=== PATIENT | female | born 1940 | race Caucasian/White ===

== ENCOUNTER → 2016-10-24 | Outpatient (CLI) | payer MEDICARE, BC | LOC: MW.CHFP 08:00 | PROVIDERS: ATTEND Family Medicine | DX: H10.30 Unspecified acute conjunctivitis, unspecified eye (principal); J01.00 Acute maxillary sinusitis, unspecified | CPT/HCPCS: G0463 ==

== ENCOUNTER 2018-09-29 11:46 | Emergency (ER) | payer MEDICARE, BC ==
[2018-09-29] MEDS ORDERED: Sodium Chloride 0.9% 10 ML Syringe FLUSH PRN (12:03)
[2018-09-29] MEDS ORDERED: Sodium Chloride 0.9% 2.5 ML Syringe FLUSH PRN (12:03)
--- NOTE | 2018-09-29 12:04 | EDM.PDOC ---
ED HPI GENERAL MEDICAL PROBLEM - General Chief Complaint: General Stated Complaint: SPOKE TO NURSE Time Seen by Provider: 09/29/18 12:03 Source of Information: Reports: Patient History Limitations: Reports: No Limitations - History of Present Illness INITIAL COMMENTS - FREE TEXT/NARRATIVE: HISTORY AND PHYSICAL: History of present illness: Patient is a 78-year-old female here with complaint of dizziness. She states it began 3 weeks ago and she has had 3 episodes of it. She reports she was on antibiotics a few weeks ago for a sinus infection. She had some dizziness at that time but it only lasted about 30 minutes. She states 2 weeks ago she had a tooth pulled and was put on ampicillin. She again had 30 minutes of dizziness that resolved on it's on. She reports today she has been having dizziness since 7:30 this morning. She reports if she sits still she is not dizzy but when she moves her head or changes position she feels like the room is spinning. She gets nauseous when this occurs but denies any vomiting. She denies head injury or fall. Denies fevers, chills, headache, cough, chest pain, SOB, abdominal pain , urinary or bowel symptoms, tinnitus or hearing loss. Past medical history significant for type 2 diabetes and hypertension. Review of systems: As per history of present illness and below otherwise all systems reviewed and negative. Past medical history: As per history of present illness and as reviewed below otherwise noncontributory. Surgical history: As per history of present illness and as reviewed below otherwise noncontributory. Social history: No reported history of drug or alcohol abuse. Family history: As per history of present illness and as reviewed below otherwise noncontributory. Physical exam: General: Patient sitting comfortably in no acute distress and nontoxic appearing HEENT: No sinus tenderness to palpation. Atraumatic, normocephalic, pupils reactive, negative for conjunctival pallor or scleral icterus, mucous membranes moist, throat clear, neck supple, nontender, trachea midline. No meningeal signs. Lungs: Clear to auscultation, breath sounds equal bilaterally, chest nontender. Heart: S1S2, regular, negative for clicks, rubs, or overt murmur. Abdomen: Soft, nondistended, nontender. Negative for masses or hepatosplenomegaly. Negative for costovertebral tenderness. No rigidity, rebound , guarding. Pelvis: Stable nontender. Genitourinary: Deferred. Rectal: Deferred. Extremities: Atraumatic, negative for cords or calf pain. Neurovascular unremarkable. Neuro: Awake, alert, oriented. Cranial nerves II through XII unremarkable. Cerebellum unremarkable. Motor and sensory unremarkable throughout. Exam nonfocal. Notes: Diagnostics: CBC, CMP, troponin, EKG, UA, Head CT, chest x-ray Therapeutics: 1L Normal Saline IV 25mg Meclizine PO Prescriptions: Meclizine Impression: Vertigo Plan: 1. Drink plenty of fluids and take medication as needed as instructed 2. Follow up with primary care provider 3. Return to ED as needed as discussed Definitive disposition and diagnosis as appropriate pending reevaluation and review of above. - Related Data Allergies Allergy/AdvReac Type Severity Reaction Status Date / Time No Known Allergies Allergy Verified 11/11/13 08:23 Home Meds: Home Meds Allopurinol 300 mg PO DAILY 04/23/15 [History] Cholecalciferol (Vitamin D3) [Vitamin D3] 1,000 unit PO DAILY 04/23/15 [History] Enalapril Maleate 20 mg PO BID 04/23/15 [History] Insulin Detemir [Levemir Flextouch] 26 unit SQ BEDTIME 04/23/15 [History] Insulin Detemir [Levemir Flextouch] 34 unit SQ ACBREAKFAST 04/23/15 [History] Latanoprost [Xalatan 0.005% Ophth Soln] 1 drop EYEBOTH BEDTIME 04/23/15 [History ] Multivit-Min/FA/Lycopene/Lut [Centrum Silver Tablet] 1 tab PO DAILY 04/23/15 [ History] atorvaSTATin [Lipitor] 20 mg PO DAILY 04/23/15 [History] hydroCHLOROthiazide [Hydrochlorothiazide] 25 mg PO DAILY PRN 04/23/15 [History] metFORMIN HCl [Glucophage] 1,000 mg PO BIDMEALS 04/26/15 [History] Aspirin [[place] Aspirin EC] 81 mg PO DAILY 09/06/15 [History] Biotin 5,000 mcg PO DAILY 09/06/15 [History] Meloxicam 15 mg PO DAILY 09/06/15 [History] Acetaminophen/HYDROcodone [[place] 325-5 MG] 1 - 2 tab PO Q6H PRN #80 tablet 09/09 [Rx] Meclizine HCl 25 mg PO TID #30 tablet 09/29/18 [Rx] Past Medical History HEENT History: Reports: Glaucoma Other HEENT History: wears glasses Cardiovascular History: Reports: High Cholesterol, Hypertension Other Cardiovascular History: Abnormality on EKG, sent for Non-gaited Stress test 04/22/15 Erin, Report included in PRE-OP packet, ok EF 60-65%. tricuspid and pulmonic valve regurgitation Respiratory History: Reports: None Other Gastrointestinal History: Occasional heartburn treat with Pepcid Genitourinary History: Reports: None Other Musculoskeletal History: History of breaking both ankles, hx: Lumbar back fusion, Arthritis back/Hips, hx: GOUT. Spinal Stenosis, lumbar, Right Lumbosacral radiculopathy, Lumbar DDD, Lumbar Postlaminectomy Syndrome Neurological History: Reports: None Psychiatric History: Reports: None Endocrine/Metabolic History: Reports: Diabetes, Type II, Obesity/BMI 30+ Hematologic History: Reports: None Immunologic History: Reports: None Other Oncologic History: Fibrocystic Breast Changes, Mass Right Breast on Mammogram Dermatologic History: Reports: None - Past Surgical History Female Surgical History: Reports: Breast Biopsy, D&C Other Neurological Surgeries/Procedures: Fusion Lumbar region 09/2013 Musculoskeletal Surgical History: Reports: Shoulder Surgery ED ROS GENERAL - Review of Systems Review Of Systems: ROS reveals no pertinent complaints other than HPI. ED EXAM, GENERAL - Physical Exam Exam: See Below (see dictation) Course - Vital Signs Last Recorded V/S: Last Vital Signs Temp 97.5 F 09/29/18 12:09 Pulse 76 09/29/18 13:26 Resp 18 09/29/18 13:26 BP 135/82 09/29/18 13:26 Pulse Ox 94 L 09/29/18 13:26 - Orders/Labs/Meds Orders: Active Orders 24 hr Category Date Time Status Cardiac Monitoring [RC] . DIRECTED Care 09/29/18 12:03 Active EKG Documentation Completion [RC] STAT Care 09/29/18 12:03 Active Orthostatic Vital Signs [RC] ASDIRECTED Care 09/29/18 14:10 Active Sodium Chloride 0.9% [Saline Flush] Med 09/29/18 12:03 Active 10 ml FLUSH ASDIRECTED PRN Sodium Chloride 0.9% [Saline Flush] Med 09/29/18 12:03 Active 2.5 ml FLUSH ASDIRECTED PRN Saline Lock Insert [OM.PC] Stat Oth 09/29/18 12:03 Ordered Medication Orders Sodium Chloride (Saline Flush) 10 ml FLUSH ASDIRECTED PRN PRN Reason: Keep Vein Open Last Admin: 09/29/18 13:25 Dose: 10 ml Sodium Chloride (Saline Flush) 2.5 ml FLUSH ASDIRECTED PRN PRN Reason: Keep Vein Open Last Admin: 09/29/18 13:25 Dose: 2.5 ml Labs: Laboratory Tests 09/29/18 09/29/18 09/29/18 Range/Units 12:22 13:13 13:13 WBC Cancelled 7.85 RBC Cancelled 4.43 Hgb Cancelled 12.8 Hct Cancelled 38.6 MCV Cancelled 87.1 MCH Cancelled 28.9 MCHC Cancelled 33.2 RDW Std Deviation Cancelled 46.2 RDW Coeff of Katey Cancelled 15 Plt Count Cancelled 211 MPV Cancelled 11.10 Neut % (Auto) Cancelled 70.5 Lymph % (Auto) Cancelled 21.8 Hall % (Auto) Cancelled 6.9 Eos % (Auto) Cancelled 0.5 Baso % (Auto) Cancelled 0.3 Neut # (Auto) Cancelled 5.5 Lymph # (Auto) Cancelled 1.7 Hall # (Auto) Cancelled 0.5 Eos # (Auto) Cancelled 0.0 Baso # (Auto) Cancelled 0.0 Add Manual Diff Cancelled Nucleated RBC % Cancelled 0.0 Nucleated RBCs # Cancelled 0 Sodium 142 (136-145) mmol/L Potassium 3.6 (3.5-5.1) mmol/L Chloride 104 (98-107) mmol/L Carbon Dioxide 27.2 (21.0-32.0) mmol/L BUN 20 H (7.0-18.0) mg/dL Creatinine 0.8 (0.6-1.0) mg/dL Est Cr Clr Drug Dosing 45.84 mL/min Estimated GFR (MDRD) > 60.0 ml/min Glucose 141 H (74-106) mg/dL Calcium 10.0 (8.5-10.1) mg/dL Total Bilirubin 0.6 (0.2-1.0) mg/dL AST 21 (15-37) IU/L ALT 35 (14-63) IU/L Alkaline Phosphatase 61 (46-116) U/L Troponin I < 0.050 (0.000-0.056) ng/mL Total Protein 7.2 (6.4-8.2) g/dL Albumin 3.8 (3.4-5.0) g/dL Globulin 3.4 (2.6-4.0) g/dL Albumin/Globulin Ratio 1.1 (0.9-1.6) Urine Color Urine Appearance Urine pH (5.0-8.0) Ur Specific [place] (1.001-1.035) Urine Protein (NEGATIVE) mg/dL Urine Glucose (UA) (NEGATIVE) mg/dL Urine Ketones (NEGATIVE) mg/dL Urine Occult Blood (NEGATIVE) Urine Nitrite (NEGATIVE) Urine Bilirubin (NEGATIVE) Urine Urobilinogen (<2.0) EU/dL Ur Leukocyte Esterase (NEGATIVE) 09/29/18 Range/Units 14:05 WBC RBC Hgb Hct MCV MCH MCHC RDW Std Deviation RDW Coeff of Katey Plt Count MPV Neut % (Auto) Lymph % (Auto) Hall % (Auto) Eos % (Auto) Baso % (Auto) Neut # (Auto) Lymph # (Auto) Hall # (Auto) Eos # (Auto) Baso # (Auto) Add Manual Diff Nucleated RBC % Nucleated RBCs # Sodium (136-145) mmol/L Potassium (3.5-5.1) mmol/L Chloride (98-107) mmol/L Carbon Dioxide (21.0-32.0) mmol/L BUN (7.0-18.0) mg/dL Creatinine (0.6-1.0) mg/dL Est Cr Clr Drug Dosing mL/min Estimated GFR (MDRD) ml/min Glucose (74-106) mg/dL Calcium (8.5-10.1) mg/dL Total Bilirubin (0.2-1.0) mg/dL AST (15-37) IU/L ALT (14-63) IU/L Alkaline Phosphatase (46-116) U/L Troponin I (0.000-0.056) ng/mL Total Protein (6.4-8.2) g/dL Albumin (3.4-5.0) g/dL Globulin (2.6-4.0) g/dL Albumin/Globulin Ratio (0.9-1.6) Urine Color YELLOW Urine Appearance CLEAR Urine pH 6.0 (5.0-8.0) Ur Specific [place] 1.015 (1.001-1.035) Urine Protein NEGATIVE (NEGATIVE) mg/dL Urine Glucose (UA) NEGATIVE (NEGATIVE) mg/dL Urine Ketones NEGATIVE (NEGATIVE) mg/dL Urine Occult Blood NEGATIVE (NEGATIVE) Urine Nitrite NEGATIVE (NEGATIVE) Urine Bilirubin NEGATIVE (NEGATIVE) Urine Urobilinogen 0.2 (<2.0) EU/dL Ur Leukocyte Esterase NEGATIVE (NEGATIVE) Meds: Medications Generic Name Dose Route Start Last Admin Trade Name Freq PRN Reason Stop Dose Admin Sodium Chloride 10 ml 09/29/18 12:03 09/29/18 13:25 Saline Flush FLUSH 10 ml ASDIRECTED PRN Administration Keep Vein Open Sodium Chloride 2.5 ml 09/29/18 12:03 09/29/18 13:25 Saline Flush FLUSH 2.5 ml ASDIRECTED PRN Administration Keep Vein Open Discontinued Medications Generic Name Dose Route Start Last Admin Trade Name Freq PRN Reason Stop Dose Admin Sodium Chloride 1,000 mls @ 999 mls/hr 09/29/18 13:19 09/29/18 13:24 Normal Saline IV 09/29/18 14:19 999 mls/hr STAT ONE Administration Meclizine HCl 25 mg 09/29/18 14:08 09/29/18 14:46 Antivert PO 09/29/18 14:09 25 mg ONETIME ONE Administration Departure - Departure Time of Disposition: 14:58 Disposition: Home, Self-Care 01 Condition: Good Clinical Impression: Vertigo - Discharge Information Prescriptions: Meclizine HCl 25 mg PO TID #30 tablet Referrals: PCP,Unknown [Primary Care Provider] - Forms: ED Department Discharge Additional Instructions: The following information is given to patients seen in the emergency department who are being discharged to home. This information is to outline your options for follow-up care. We provide all patients seen in our emergency department with a follow-up referral. The need for follow-up, as well as the timing and circumstances, are variable depending upon the specifics of your emergency department visit. If you don't have a primary care physician on staff, we will provide you with a referral. We always advise you to contact your personal physician following an emergency department visit to inform them of the circumstance of the visit and for follow-up with them and/or the need for any referrals to a consulting specialist. The emergency department will also refer you to a specialist when appropriate. This referral assures that you have the opportunity for follow-up care with a specialist. All of these measure are taken in an effort to provide you with optimal care, which includes your follow-up. Under all circumstances we always encourage you to contact your private physician who remains a resource for coordinating your care. When calling for follow-up care, please make the office aware that this follow-up is from your recent emergency room visit. If for any reason you are refused follow-up, please contact the [facility] at and asked to speak to the emergency department charge nurse. [facility] [address] [place] [id number] 1. Drink plenty of fluids and take medication as needed as instructed 2. Follow up with primary care provider 3. Return to ED as needed as discussed - My Orders Last 24 Hours: My Active Orders 09/29/18 12:03 Cardiac Monitoring [RC] . DIRECTED EKG Documentation Completion [RC] STAT Sodium Chloride 0.9% [Saline Flush] 10 ml FLUSH ASDIRECTED PRN Sodium Chloride 0.9% [Saline Flush] 2.5 ml FLUSH ASDIRECTED PRN Saline Lock Insert [OM.PC] Stat 09/29/18 14:10 Orthostatic Vital Signs [RC] ASDIRECTED - Assessment/Plan Last 24 Hours: My Active Orders 09/29/18 12:03 Cardiac Monitoring [RC] . DIRECTED EKG Documentation Completion [RC] STAT Sodium Chloride 0.9% [Saline Flush] 10 ml FLUSH ASDIRECTED PRN Sodium Chloride 0.9% [Saline Flush] 2.5 ml FLUSH ASDIRECTED PRN Saline Lock Insert [OM.PC] Stat 09/29/18 14:10 Orthostatic Vital Signs [RC] ASDIRECTED
[2018-09-29] MEDS ORDERED: Sodium Chloride 0.9% 1,000 ML IV ONE (13:19)
--- NOTE | 2018-09-29 13:27 | CT ---
INDICATION: Dizzy since 7 o`clock p.m. last night. TECHNIQUE: CT head without IV contrast. FINDINGS: Small benign calcifications in each basal ganglia. No intracranial hemorrhage, edema, or mass effect. Mild to moderate cerebral and cerebellar atrophy. Remainder negative. IMPRESSION: No acute intracranial disease. Chronic intracranial findings as detailed above. Please note that all CT scans at this facility use dose modulation, iterative reconstruction, and/or weight-based dosing when appropriate to reduce radiation dose to as low as reasonably achievable. Dictated by Home Lind MD @ Sep 29 2018 1:26PM Signed by Dr. Home Lind @ Sep 29 2018 1:26PM
--- NOTE | 2018-09-29 13:31 | CR ---
INDICATION: Dizziness since 7 p.m. last night. TECHNIQUE: AP portable chest x-ray. COMPARISON: None. FINDINGS: Heart size within normal limits. Shallow inspiration. No focal infiltrate or consolidation in either lung. Rotator cuff arthropathy and degenerative changes both shoulders. Chest otherwise negative without acute disease. Dictated by Home Lind MD @ Sep 29 2018 1:29PM Signed by Dr. Home Lind @ Sep 29 2018 1:30PM
[2018-09-29 13:49] LABS: CHLORIDE,CL 104 mmol/L (98-107); SODIUM,NA 142 mmol/L (136-145)
[2018-09-29] MEDS ORDERED: Meclizine 25 MG Tab PO ONE (14:08)
[2018-09-29 15:21] VITALS: BP 151/71
== END 2018-09-29 15:21 | disposition home or self-care (01) ==
LOC: MW.ED 11:46
DX: R42 Dizziness and giddiness (principal); I10 Essential (primary) hypertension; E78.00 Pure hypercholesterolemia, unspecified; E11.9 Type 2 diabetes mellitus without complications; Z79.4 Long term (current) use of insulin; Z79.899 Other long term (current) drug therapy
CPT/HCPCS: 36415; 70450; 71045; 80053; 81003; 84484; 85025; 93005; 96360; 96361; 99284; A9270; J7040

== ENCOUNTER 2024-02-23 21:31 | Emergency (ER) | payer MEDICARE, OTHER ==
[2024-02-23 21:43] LABS: BASOPHILS ABSOLUTE AUTO 0.05 K/uL (0.00-0.20); BASOPHILS PERCENT AUTO 0.5 % (0.0-1.0); EOSINOPHILS ABSOLUTE AUTO 0.11 K/uL (0.00-0.45); HEMATOCRIT 38.4 % (37.0-47.0); HEMOGLOBIN 12.7 g/dL (12.0-16.0); IMMATURE GRAN ABSOLUTE AUTO 0.04 K/uL (0.00-0.05); IMMATURE GRAN PERCENT AUTO 0.4 % (0.0-0.4); LYMPHOCYTES ABSOLUTE AUTO 3.98 K/uL (1.00-4.80); LYMPHOCYTES PERCENT AUTO 37.5 % (24.0-44.0); MEAN CORPUSCULAR HEMOGLOBIN 28.8 pg (28.0-32.0); MEAN CORPUSCULAR HGB CONC 33.1 g/dL (32.0-36.0); MEAN CORPUSCULAR VOLUME 87.1 fL (83.0-99.0); MEAN PLATELET VOLUME 11.3 fL (9.4-12.3); MONOCYTES PERCENT AUTO 8.5 % (0.0-8.0); NEUTROPHILS ABSOLUTE AUTO 5.54 K/uL (1.80-7.70); NEUTROPHILS PERCENT AUTO 52.1 % (41.0-71.0); PLATELET COUNT,PLT 200 K/uL (150-400); RED BLOOD CELL COUNT 4.41 M/uL (4.10-5.30); WHITE BLOOD CELL COUNT,WBC 10.62 K/uL (3.9-11.3)
[2024-02-23 22:07] LABS: A/G RATIO 1.2 (0.9-1.6); ALBUMIN 3.9 g/dL (3.4-5.0); BILIRUBIN TOTAL 0.5 mg/dL (0.2-1.0); CALCIUM 9.8 mg/dL (8.5-10.1); CARBON DIOXIDE,CO2 26.3 mmol/L (21.0-32.0); CREATININE 0.9 mg/dL (0.6-1.0); EST CRCL DRUG DOSING (CG) 34.02 mL/min; POTASSIUM,K 3.8 mmol/L (3.5-5.1); PROTEIN TOTAL,TP 7.2 g/dL (6.4-8.2)
[2024-02-23] MEDS: Aspirin 81 MG Tab.Chew PO ONE (23:22)
[2024-02-23] MEDS: Sodium Chloride 0.9% 2.5 ML Syringe FLUSH PRN (23:23)
[2024-02-23] MEDS: Sodium Chloride 0.9% 10 ML Syringe FLUSH PRN (23:23)
[2024-02-24 01:00] VITALS: BP 100/55; PULSE 89
== END 2024-02-24 00:55 | disposition home or self-care (01) ==
LOC: MW.ED 21:31
DX: R07.9 Chest pain, unspecified (principal); I10 Essential (primary) hypertension; E66.9 Obesity, unspecified; E11.9 Type 2 diabetes mellitus without complications; Z79.82 Long term (current) use of aspirin; Z79.84 Long term (current) use of oral hypoglycemic drugs; Z79.899 Other long term (current) drug therapy; Z90.49 Acquired absence of other specified parts of digestive tract; Z68.38 Body mass index [BMI] 38.0-38.9, adult; Z75.8 Other problems related to medical facilities and other health care
CPT/HCPCS: 36415; 71045; 80053; 84484; 85025; 93005; 99285; A9270; J3490; 93010; 99283